=== PATIENT | male | born 1965 | race Caucasian/White ===

== ENCOUNTER 2021-11-30 17:14 | Emergency (ER) | payer BC ==
[2021-11-30 17:31] VITALS: BP 170/102; PULSE 73
[2021-11-30 18:22] LABS: TROPONIN I HIGH SENSITIVITY 10.5 pg/ml (<=60.4)
== END 2021-11-30 18:47 | disposition home or self-care (01) ==
LOC: LB.ED 17:14
DX: J11.1 Influenza due to unidentified influenza virus with other respiratory manifestations (principal); Z79.899 Other long term (current) drug therapy
CPT/HCPCS: 36415; 71046; 80053; 84484; 85025; 85379; 93005; 99285-25

== ENCOUNTER 2024-02-10 07:51 | Day surgery (SDC) | payer OTHER ==
[~2024-02-10 07:51] MED LIST: Metoclopramide 10 MG/2 ML SDV IV PRN
[2024-02-10] MEDS: Sodium Chloride 0.9% 1,000 ML IV SCH (08:23)
[2024-02-10 09:59] VITALS: BP 129/87; PULSE 58
[2024-02-10] MEDS ORDERED: Propofol 200 MG/20 ML SDV ONE (19:40)
[2024-02-10] MEDS ORDERED: Lidocaine 1% 30 ML SDV ONE (19:40)
== END 2024-02-10 11:03 | disposition home or self-care (01) ==
LOC: LB.SDS 07:51
PROVIDERS: ATTEND Surgery
DX: Z12.11 Encounter for screening for malignant neoplasm of colon (principal); K63.5 Polyp of colon; K31.7 Polyp of stomach and duodenum; K29.50 Unspecified chronic gastritis without bleeding; K31.89 Other diseases of stomach and duodenum; K57.30 Diverticulosis of large intestine without perforation or abscess without bleeding; K21.9 Gastro-esophageal reflux disease without esophagitis; I10 Essential (primary) hypertension; Z79.899 Other long term (current) drug therapy
CPT/HCPCS: 88305; 88342; J2704; J7030

== ENCOUNTER 2024-10-12 14:41 | Emergency (ER) | payer OTHER ==
[2024-10-12 14:54] VITALS: PULSE 63
[2024-10-12] MEDS: Ketorolac 30 MG/ML SDV IM ONE (15:08)
[2024-10-12] MEDS: Orphenadrine 60 MG/2 ML Inj IM ONE (15:09)
[2024-10-12 17:35] VITALS: BP 139/90
== END 2024-10-12 15:45 | disposition home or self-care (01) ==
LOC: LB.ED 14:41
DX: S39.012A Strain of muscle, fascia and tendon of lower back, initial encounter (principal); I10 Essential (primary) hypertension; E78.00 Pure hypercholesterolemia, unspecified; Z87.891 Personal history of nicotine dependence; Z79.899 Other long term (current) drug therapy; X50.0XXA Overexertion from strenuous movement or load, initial encounter; Y93.89 Activity, other specified; Y99.0 Civilian activity done for income or pay
CPT/HCPCS: 96372; 99283; J1885; J2360